=== PATIENT | male | born 1980 | race Caucasian/White ===

== ENCOUNTER 2021-02-18 16:35 | Outpatient (CLI) | payer OTHER, SELFPAY | END 2021-02-18 16:36 | disposition home or self-care (01) | LOC: ANHCOVIDVC 16:35 | PROVIDERS: PCP Family Medicine | DX: Z23 Encounter for immunization (principal) | CPT/HCPCS: 0001A; 91300 ==

== ENCOUNTER 2021-03-11 16:26 | Outpatient (CLI) | payer OTHER, SELFPAY | END 2021-03-11 16:27 | disposition home or self-care (01) | LOC: ANHCOVIDVC 16:27 | PROVIDERS: PCP Family Medicine | DX: Z23 Encounter for immunization (principal) | CPT/HCPCS: 0002A; 91300 ==